=== PATIENT | female | born 1985 | race Asian ===

== ENCOUNTER 2017-03-16 01:59 | Inpatient (IN) | payer BC ==
[~2017-03-16] VITALS: Ht 149.9 cm; Wt 57.3 kg
[~2017-03-16 01:59] MED LIST: AMOX500C85 PO; FLUT0.05 NAS; RANI150T78 PO
[2017-03-16 02:51] VITALS: BP 139/66; TEMP 98.6
[2017-03-16 04:08] LABS: PLATELET COUNT 226 K/uL (152-353)
[2017-03-16 04:20] LABS: POTASSIUM 3.7 mmol/L (3.6-5.2); SODIUM 138 mmol/L (136-145)
[2017-03-16 04:27] LABS: PARTIAL THROMBOPLASTIN TIME 25.9 SECONDS (24.5-33.6)
[2017-03-16 07:10] VITALS: BP 128/63; TEMP 98.6
[2017-03-16] MEDS ORDERED: ZOLOFT25 MG PO (07:23)
[2017-03-16 12:00] VITALS: BP 111/66; BP 118/70; TEMP 98.5; TEMP 98.7
[2017-03-16 14:23] VITALS: BP 104/61; TEMP 98.7; Ht 149.9 cm; Wt 57.3 kg
--- NOTE | 2017-03-16 15:05 | NUR ---
1505 REPORTED TO COLIN GRIMALDO [facility] [employer] AGENT OF A CONSULT WITH PATIENT IN 1123 WHO REQUESTED TO BE PLACED ON TRAVEL FREIGHT AND PASSENGER AGENT LIST. MR. GRIMALDO AGREED TO SEE PATIENT AND VISITED WITH HER. WILL F/U WITH PATIENT FOR OTHER SPIRITUAL NEEDS.
--- NOTE | 2017-03-16 15:07 | NUR ---
0830 RECEIVED PATIENT TO ROOM 1123. PLEASANT 31 YO FEMAL WITH PROCTATITIS. C/O PAIN RATING 2-3 AT THIS TIME. WILL CONTINUE TO MONITOR. SL IN LEFT AC. FLUSHED WELL. SECURE WITH TEGADERM. ORIENTED TO ROOM COVERING BED CONTROLS, SIDE RAILS, ASSISTANCE WHEN NEEDED, AND USE OF THE CALL LIGHT. PT. DEMONSTRATED USE OF CALL LIGHT WITH VERBAL RETURN. REQUESTED PT. TO CALL WHEN STOOL SAMPLE AVAILABLE. WILL CONTINUE TO MONITOR.
[2017-03-16 16:00] VITALS: BP 129/89; TEMP 98
[2017-03-16 20:00] VITALS: BP 134/75; TEMP 97.8
[2017-03-17] VITALS: BP 99/57; TEMP 97.5
[2017-03-17 04:10] VITALS: BP 101/60; TEMP 97.9
[2017-03-17 04:28] LABS: PLATELET COUNT 205 K/uL (152-353)
[2017-03-17 04:45] LABS: POTASSIUM 3.8 mmol/L (3.6-5.2); SODIUM 136 mmol/L (136-145)
[2017-03-17 08:00] VITALS: BP 106/65; TEMP 98.3
[2017-03-17 12:00] VITALS: BP 109/61; TEMP 97.6
[2017-03-17 16:00] VITALS: BP 117/56; TEMP 98.4
--- NOTE | 2017-03-17 19:30 | NUR ---
PM ASSESSMENT COMPLETED. PT ON CELL PHONE AT THIS TIME. ALERT AND ORIENTED. PLAN OF CARE DISCUSSED.
[2017-03-17 20:20] VITALS: BP 116/60; TEMP 98.9
--- NOTE | 2017-03-17 21:25 | NUR ---
PT C/O RECTAL PAIN. MEDICATED WITH DEMEROL 25MG IV ORDERED. PAIN SCALE 8
--- NOTE | 2017-03-17 22:36 | NUR ---
PT AWAKE ON ROUNDS. STATES NO ABLE TO SLEEP AT THIS TIME.
--- NOTE | 2017-03-17 23:30 | NUR ---
IV TO LEFT AC INFILTRATED. IV DC'D.
[2017-03-18] VITALS (7 sets, daily range): BP systolic 112–131; BP diastolic 67–82; TEMP 97.7–98.7
--- NOTE | 2017-03-18 | NUR ---
IV RESTARTED WITH 22G TO LEFFT WRIST PER BOLA SAUER RN.
--- NOTE | 2017-03-18 01:30 | NUR ---
PT C/O RECTAL PAIN. MEDICATED WITH DEMEROL 25MG IV ORDERED.
--- NOTE | 2017-03-18 02:00 | NUR ---
PT RESTING QUIETLY WITH EYES CLOSED PAST DEMEROL.
--- NOTE | 2017-03-18 03:06 | NUR ---
PT AWAKE. STATES SHE FEELS ZOLOFT IS KEEPING HER AWAKE. STATES SHE HAS HAD THIS PROBLEM IN THE PAST.
--- NOTE | 2017-03-18 05:11 | NUR ---
PT RESTING QUIETLY AT PRESENT.
--- NOTE | 2017-03-18 10:00 | NUR ---
PT C/O CP. EKG DONE. PT STATES SHE FEELS LIKE ITS HEARTBURN. PT REFUSED GI COCKTAIL, STATES HE MAKES HER HAVE BM. PT DID NOT WANT DEMEROL DUE IT MAKING HER HAVE HEADACHE. PT REQUEST SOMETHING STRONGER THAN TYLENOL. KOSTA AUGUSTIN RN NOTIFIED AND WILL NOITIFY DR ARGUELLO. PT INSTRUCTED AWAITING FOR NEW ORDER.
--- NOTE | 2017-03-18 12:30 | NUR ---
PT C/O PAIN AT IV SITE. SLIGHT SWELLING NOTED AT SITE. IV DC'D WITH CANNULA INTACT AND SITE CARE PROVIDED. PT WANTS TO SHOWER BEFORE RESTARTING IV. INSTRUCTED TO CALL WHEN FINISHED.
--- NOTE | 2017-03-18 14:11 | NUR ---
IV RESTARTED TO L AC WITH 22G ANGIOCATH X 2 ATTEMPTS PER TREVA ORTIZ RN. PT TOELRATED WELL.
[2017-03-18 14:29] LABS: PLATELET COUNT 221 K/uL (152-353)
[2017-03-18 14:33] LABS: POTASSIUM 3.6 mmol/L (3.6-5.2); SODIUM 135 mmol/L (136-145)
[2017-03-19 04:00] VITALS: BP 116/72; TEMP 98.7
[2017-03-19 05:18] LABS: PLATELET COUNT 189 K/uL (152-353)
[2017-03-19 05:32] LABS: POTASSIUM 3.3 mmol/L (3.6-5.2); SODIUM 135 mmol/L (136-145)
[2017-03-19 08:00] VITALS: BP 110/79; TEMP 97.9
[2017-03-19 12:22] VITALS: BP 125/53; TEMP 97.8
--- NOTE | 2017-03-19 15:00 | NUR ---
D/C INSTRUCTIONS GIVEN TO PT WITH RX ATTACHED. PT STATED ALREADY HAS F/U APPT WITH PCP ON FRIDAY. INFORMED HER THAT SHE CAN OBTAIN MEDICAL RECORD RELEASE TO OBTAIN RECORD OF CHART FROM PCP OFFICE. PT VERBALIZED UNDERSTANDING. AWAITING MOTHER TO TRANSPORT HOME
== END 2017-03-19 15:37 | disposition home or self-care (01) | DRG 394 ==
LOC: ED 01:59 → MED/SURG 07:00 → ED 07:08 → MED/SURG 03-19 15:37
PROVIDERS: Internal Medicine; ADMIT Emergency Medicine
DX: K62.89 Other specified diseases of anus and rectum (principal); K92.1 Melena
CPT/HCPCS: 36415; 80053; 81000; 81025; 82150; 83516; 83690; 83735; 84439; 84443; 84481; 85027; 85610; 85651; 85730; 86039; 86140; 86225; 86235; 86255; 86318; 86671; 87015; 87045; 87328; 87329; 87899; 93005; 99283; J1100; J2175; J2405; J3490; Q9963

== ENCOUNTER 2019-08-05 18:27 | Outpatient (CLI) | payer OTHER ==
[~2019-08-05 18:27] MED LIST changes: +ZOLOFT25 MG PO
== END 2019-08-05 18:32 | disposition short-term general hospital (02) ==
LOC: AMB 18:27
DX: R06.02 Shortness of breath (principal); R07.9 Chest pain, unspecified
CPT/HCPCS: A0425; A0427

== ENCOUNTER 2019-08-05 18:38 | Emergency (ER) | payer OTHER ==
[~2019-08-05] VITALS: Ht 149.9 cm; Wt 61.7 kg
[2019-08-05 19:16] LABS: PLATELET COUNT 283 K/uL (152-353)
[2019-08-05 19:23] LABS: POTASSIUM 3.1 mmol/L (3.6-5.2); SODIUM 140 mmol/L (136-145)
[2019-08-06 00:49] VITALS: BP 129/74; TEMP 98.4
== END 2019-08-06 00:49 | disposition home or self-care (01) ==
LOC: ED 18:38
PROVIDERS: Emergency Medicine Emergency Medical Services
DX: R07.89 Other chest pain (principal); E87.6 Hypokalemia; R00.0 Tachycardia, unspecified
CPT/HCPCS: 80053; 82550; 82947; 84484; 85027; 93005; 96365; 99284; J1885; Q9963

== ENCOUNTER 2019-09-06 20:10 | Emergency (ER) | payer OTHER ==
[~2019-09-06] VITALS: Ht 149.9 cm; Wt 61.7 kg
[2019-09-06 22:38] VITALS: BP 103/64; TEMP 97.8
== END 2019-09-06 22:38 | disposition home or self-care (01) ==
LOC: ED 20:10
DX: R51 Headache (principal); J02.9 Acute pharyngitis, unspecified; R05 Cough; R50.9 Fever, unspecified
CPT/HCPCS: 87502; 87651; 99283

== ENCOUNTER 2019-10-26 11:28 | Emergency (ER) | payer OTHER ==
[~2019-10-26] VITALS: Ht 149.9 cm; Wt 61.7 kg
[2019-10-26 11:41] VITALS: TEMP 97.6
[2019-10-26 12:20] LABS: PLATELET COUNT 244 K/uL (152-353)
[2019-10-26 12:30] LABS: POTASSIUM 3.5 mmol/L (3.6-5.2); SODIUM 137 mmol/L (136-145)
[2019-10-26 13:59] VITALS: BP 124/68
== END 2019-10-26 13:51 | disposition home or self-care (01) ==
LOC: ED 11:28
PROVIDERS: Family Medicine
DX: R07.89 Other chest pain (principal); E87.6 Hypokalemia
CPT/HCPCS: 80053; 81000; 82550; 84484; 85027; 93005; 99283

== ENCOUNTER 2019-12-14 00:10 | Emergency (ER) | payer OTHER ==
[~2019-12-14] VITALS: Ht 149.9 cm; Wt 59.0 kg
[2019-12-14 00:50] LABS: PLATELET COUNT 254 K/uL (152-353)
[2019-12-14 01:01] LABS: POTASSIUM 3.6 mmol/L (3.6-5.2)
[2019-12-14 04:40] VITALS: BP 114/72; TEMP 97.5
== END 2019-12-14 04:40 | disposition home or self-care (01) ==
LOC: ED 00:10
PROVIDERS: Student in an Organized Health Care Education/Training Program
DX: N83.291 Other ovarian cyst, right side (principal)
CPT/HCPCS: 36415; 80053; 81000; 81025; 83690; 85027; 87086; 87088; 87210; 87490; 87590; 96360; 96372; 99284; J0696; J1885; J2405; Q9963

== ENCOUNTER 2020-02-28 14:48 | Emergency (ER) | payer OTHER ==
[~2020-02-28] VITALS: Ht 149.9 cm; Wt 59.0 kg
[2020-02-28 15:35] VITALS: BP 115/68; TEMP 98.2
== END 2020-02-28 15:43 | disposition home or self-care (01) ==
LOC: ED 14:48
DX: L23.89 Allergic contact dermatitis due to other agents (principal)
CPT/HCPCS: 99282

== ENCOUNTER 2020-04-26 13:17 | Outpatient (CLI) | payer OTHER | END 2020-04-26 19:52 | disposition home or self-care (01) | LOC: RESP 13:17 | DX: M54.2 Cervicalgia (principal); Z79.899 Other long term (current) drug therapy; M06.4 Inflammatory polyarthropathy; M32.8 Other forms of systemic lupus erythematosus; M35.01 Sjogren syndrome with keratoconjunctivitis; M47.816 Spondylosis without myelopathy or radiculopathy, lumbar region ==

== ENCOUNTER 2020-05-17 23:51 | Emergency (ER) | payer OTHER ==
[~2020-05-17] VITALS: Ht 149.9 cm; Wt 59.0 kg
[2020-05-18 00:36] LABS: PLATELET COUNT 258 K/uL (152-353)
[2020-05-18 00:38] LABS: POTASSIUM 3.7 mmol/L (3.6-5.2)
[2020-05-18 03:43] VITALS: BP 116/74; TEMP 98.9
== END 2020-05-18 03:44 | disposition home or self-care (01) ==
LOC: ED 23:51
PROVIDERS: Emergency Medicine
DX: R10.84 Generalized abdominal pain (principal); N83.291 Other ovarian cyst, right side
CPT/HCPCS: 80053; 81000; 81025; 82150; 83690; 85027; 96374; 99284; J1885; Q9963

== ENCOUNTER 2020-07-04 08:40 | Outpatient (CLI) | payer OTHER | END 2020-07-05 00:22 | disposition home or self-care (01) | LOC: US 08:40 | DX: E01.0 Iodine-deficiency related diffuse (endemic) goiter (principal); R10.84 Generalized abdominal pain; R16.1 Splenomegaly, not elsewhere classified; M85.80 Other specified disorders of bone density and structure, unspecified site ==

== ENCOUNTER 2020-07-14 10:19 | Emergency (ER) | payer OTHER ==
[~2020-07-14] VITALS: Ht 149.9 cm; Wt 58.1 kg
[2020-07-14 10:25] VITALS: TEMP 98.4
[2020-07-14 11:07] LABS: PLATELET COUNT 229 K/uL (152-353)
[2020-07-14 11:14] LABS: POTASSIUM 3.5 mmol/L (3.6-5.2)
[2020-07-14 13:56] VITALS: BP 112/66
== END 2020-07-14 13:56 | disposition home or self-care (01) ==
LOC: ED 10:19
PROVIDERS: Family Medicine
DX: R59.0 Localized enlarged lymph nodes (principal); K59.09 Other constipation; R31.9 Hematuria, unspecified
CPT/HCPCS: 80053; 81000; 81025; 85027; 96360; 96375; 99284; J1885

== ENCOUNTER 2020-11-14 09:39 | Emergency (ER) | payer OTHER ==
[~2020-11-14] VITALS: Ht 149.9 cm; Wt 58.1 kg
[2020-11-14 10:02] VITALS: BP 128/40; TEMP 99
[2020-11-14 11:17] LABS: PLATELET COUNT 228 K/uL (152-353)
[2020-11-14 11:27] LABS: POTASSIUM 3.8 mmol/L (3.6-5.2)
== END 2020-11-14 14:35 | disposition home or self-care (01) ==
LOC: ED 09:39
PROVIDERS: Family Medicine
DX: R11.2 Nausea with vomiting, unspecified (principal); J06.9 Acute upper respiratory infection, unspecified; Z03.818 Encounter for observation for suspected exposure to other biological agents ruled out
CPT/HCPCS: 80053; 81000; 81025; 85027; 87502; 87635; 87651; 99283; U0003

== ENCOUNTER 2020-12-07 05:10 | Emergency (ER) | payer OTHER ==
[~2020-12-07] VITALS: Ht 149.9 cm; Wt 55.8 kg
[2020-12-07 05:20] VITALS: TEMP 98.2
[2020-12-07 05:50] LABS: PLATELET COUNT 243 K/uL (152-353)
[2020-12-07 05:58] LABS: POTASSIUM 3.8 mmol/L (3.6-5.2); SODIUM 138 mmol/L (136-145)
[2020-12-07 08:00] VITALS: BP 122/77
== END 2020-12-07 08:06 | disposition home or self-care (01) ==
LOC: ED 05:10
PROVIDERS: Family Medicine
DX: B34.9 Viral infection, unspecified (principal); U07.1 COVID-19
CPT/HCPCS: 36415; 80053; 81000; 84484; 85027; 87635; 93005; 96360; 99284; U0003

== ENCOUNTER 2021-02-06 08:36 | Emergency (ER) | payer OTHER ==
[~2021-02-06] VITALS: Ht 149.9 cm; Wt 57.6 kg
[2021-02-06 08:39] VITALS: TEMP 97.1
[2021-02-06 09:26] LABS: PLATELET COUNT 221 K/uL (152-353)
[2021-02-06 09:32] LABS: POTASSIUM 3.4 mmol/L (3.6-5.2)
[2021-02-06 11:54] VITALS: BP 115/68
== END 2021-02-06 11:54 | disposition home or self-care (01) ==
LOC: ED 08:36
PROVIDERS: Family Medicine
DX: R51.9 Headache, unspecified (principal); R11.2 Nausea with vomiting, unspecified; E87.6 Hypokalemia; Z20.822 Contact with and (suspected) exposure to COVID-19; Z98.890 Other specified postprocedural states
CPT/HCPCS: 36415; 80053; 81000; 82150; 83690; 85027; 87502; 87635; 87651; 96360; 96361; 96374; 96375; 99284; J1885; J2405; U0003

== ENCOUNTER 2021-05-23 15:27 | Emergency (ER) | payer OTHER ==
[~2021-05-23] VITALS: Ht 149.9 cm; Wt 57.6 kg
[2021-05-23 15:40] VITALS: BP 121/69; TEMP 97.6
== END 2021-05-23 19:04 | disposition home or self-care (01) ==
LOC: ED 15:27
DX: Z53.21 Procedure and treatment not carried out due to patient leaving prior to being seen by health care provider (principal); M54.89 Other dorsalgia; Z98.890 Other specified postprocedural states; Y93.39 Activity, other involving climbing, rappelling and jumping off
CPT/HCPCS: 99281

== ENCOUNTER 2021-07-19 08:24 | Emergency (ER) | payer OTHER ==
[~2021-07-19] VITALS: Ht 149.9 cm; Wt 61.2 kg
[2021-07-19 08:25] VITALS: TEMP 98.2
[2021-07-19 09:01] LABS: PLATELET COUNT 225 K/uL (152-353)
[2021-07-19 09:18] LABS: PARTIAL THROMBOPLASTIN TIME 25.4 SECONDS (24.5-33.6)
[2021-07-19 09:24] LABS: POTASSIUM 3.5 mmol/L (3.6-5.2); SODIUM 138 mmol/L (136-145)
[2021-07-19 12:10] VITALS: BP 127/81
== END 2021-07-19 12:11 | disposition home or self-care (01) ==
LOC: ED 08:24
PROVIDERS: Hospitalist
DX: J06.9 Acute upper respiratory infection, unspecified (principal); J40 Bronchitis, not specified as acute or chronic; Z20.822 Contact with and (suspected) exposure to COVID-19; F17.210 Nicotine dependence, cigarettes, uncomplicated
CPT/HCPCS: 36415; 80053; 82550; 83880; 84484; 85027; 85379; 85610; 85730; 87635; 93005; 96360; 96365; 96375; 99284; J0456; J1100; J2405; U0003

== ENCOUNTER 2021-08-02 08:54 | Outpatient (CLI) | payer OTHER | END 2021-08-02 18:57 | disposition home or self-care (01) | LOC: MRI 08:54 | PROVIDERS: ATTEND Orthopaedic Surgery Orthopaedic Surgery of the Spine | DX: Z47.89 Encounter for other orthopedic aftercare (principal); M54.31 Sciatica, right side | CPT/HCPCS: A9576 ==

== ENCOUNTER 2021-10-24 14:06 | Outpatient (CLI) | payer OTHER | END 2021-10-24 19:00 | disposition home or self-care (01) | LOC: RESP 14:06 | PROVIDERS: ATTEND Nurse Practitioner Family | DX: M32.8 Other forms of systemic lupus erythematosus (principal); M35.01 Sjogren syndrome with keratoconjunctivitis; M85.89 Other specified disorders of bone density and structure, multiple sites; Z79.899 Other long term (current) drug therapy ==

== ENCOUNTER 2021-11-07 12:42 | Outpatient (CLI) | payer OTHER | END 2021-11-07 19:00 | disposition home or self-care (01) | LOC: RAD 12:42 | PROVIDERS: ATTEND Nurse Practitioner Family | DX: M06.4 Inflammatory polyarthropathy (principal); M25.562 Pain in left knee; M32.8 Other forms of systemic lupus erythematosus; M47.816 Spondylosis without myelopathy or radiculopathy, lumbar region; M85.89 Other specified disorders of bone density and structure, multiple sites ==

== ENCOUNTER 2021-12-04 11:01 | Outpatient (CLI) | payer OTHER | END 2021-12-04 18:57 | disposition home or self-care (01) | LOC: MRI 11:01 | PROVIDERS: ATTEND Orthopaedic Surgery Orthopaedic Surgery of the Spine | DX: Z47.89 Encounter for other orthopedic aftercare (principal); M54.16 Radiculopathy, lumbar region; M79.7 Fibromyalgia | CPT/HCPCS: A9576 ==

== ENCOUNTER 2022-04-30 12:24 | Emergency (ER) | payer OTHER ==
[~2022-04-30] VITALS: Ht 149.9 cm; Wt 59.0 kg
[2022-04-30 12:37] LABS: PLATELET COUNT 238 K/uL (152-353)
[2022-04-30 12:45] LABS: POTASSIUM 3.4 mmol/L (3.6-5.2)
[2022-04-30 13:40] VITALS: BP 154/80; TEMP 98.6
== END 2022-04-30 13:40 | disposition home or self-care (01) ==
LOC: ED 12:26
PROVIDERS: Emergency Medicine
DX: R07.89 Other chest pain (principal); M54.59 Other low back pain
CPT/HCPCS: 80048; 84484; 85027; 85379; 93005; 99284

== ENCOUNTER 2022-10-30 12:46 | Outpatient (CLI) | payer OTHER | END 2022-10-30 19:26 | disposition home or self-care (01) | LOC: MRI 12:46 | PROVIDERS: ATTEND Orthopaedic Surgery Orthopaedic Surgery of the Spine | DX: M46.1 Sacroiliitis, not elsewhere classified (principal); M46.07 Spinal enthesopathy, lumbosacral region; M54.16 Radiculopathy, lumbar region; M47.896 Other spondylosis, lumbar region; M51.36 Other intervertebral disc degeneration, lumbar region ==

== ENCOUNTER 2023-02-05 18:46 | Emergency (ER) | payer OTHER ==
[~2023-02-05] VITALS: Ht 149.9 cm; Wt 66.7 kg
[2023-02-05 18:55] VITALS: TEMP 98
[2023-02-05 19:35] LABS: PLATELET COUNT 276 K/uL (152-353)
[2023-02-05 19:41] LABS: POTASSIUM 3.5 mmol/L (3.6-5.2); SODIUM 136 mmol/L (136-145)
[2023-02-05 23:08] VITALS: BP 121/58
== END 2023-02-05 23:10 | disposition home or self-care (01) ==
LOC: ED 18:46
PROVIDERS: Internal Medicine
DX: R00.0 Tachycardia, unspecified (principal)
CPT/HCPCS: 80053; 80307; 81002; 84484; 85027; 93005; 96374; 96376; 99284; J3490

== ENCOUNTER 2023-05-05 13:05 | Emergency (ER) | payer OTHER ==
[~2023-05-05] VITALS: Ht 149.9 cm; Wt 71.2 kg
[2023-05-05 13:15] VITALS: BP 134/62; TEMP 97.7
== END 2023-05-05 14:05 | disposition home or self-care (01) ==
LOC: ED 13:05
DX: S09.90XA Unspecified injury of head, initial encounter (principal); X58.XXXA Exposure to other specified factors, initial encounter
CPT/HCPCS: 99282